=== PATIENT | female | born 1945 | race Caucasian/White ===

== ENCOUNTER 2017-03-08 07:12 | Emergency (ER) | payer MEDICARE, OTHER ==
--- NOTE | 2017-03-08 07:37 | ERPHSYRPT ---
- History of Present Illness Time Seen by Provider: 03/08/17 07:29 Source: patient Exam Limitations: no limitations Patient Subjective Stated Complaint: pt tripped and fell yesterday, pt co pain to left elbow Triage Nursing Assessment: pt co pain to upper arm that radiates to forearm, states that elbow area hurts the worst, has swelling at eblow. moves fingers well,strong radial pulse Physician History: The patient is a right-handed 71-year-old female with her complaining of tripping, falling on the carpeted floor, and hurting her left elbow yesterday afternoon. Today the left elbow is swollen and tender. It hurts to move it. the pain radiates from the elbow up into the forearm. She has no numbness or tingling. She is able to move her wrist and fingers without difficulty. She has a past medical history of hypertension, high cholesterol, GERD, restless legs, and arthritis. Occurred: yesterday Method of Injury: fell Quality: throbbing Severity of Pain-Max: moderate Severity of Pain-Current: moderate Extremities Pain Location: elbow: left Modifying Factors: Improves With: nothing Associated Symptoms: none Allergies/Adverse Reactions: amitriptyline HCl [From Elavil] Allergy (Mild, Verified 03/08/17 07:23) tramadol Allergy (Mild, Verified 03/08/17 07:23) quinine Adverse Reaction (Verified 03/08/17 07:23) Home Medications: Aspirin EC 81 mg [Ecotrin 81 mg] 1 tab PO DAILY 07/10/12 [History] Celecoxib [Celebrex] 1 cap PO BID 07/10/12 [History] Famotidine 2 tab PO HS 07/10/12 [History] Metoclopramide HCl [Reglan] 2 tab PO BID 07/10/12 [History] Rabeprazole Sodium [Aciphex] 2 tab PO BID 07/10/12 [History] Telmisartan [Micardis] 1 tab PO DAILY 07/10/12 [History] Tolterodine Tartrate [Detrol LA] 1 cap PO DAILY 07/10/12 [History] Clonazepam [Klonopin] 1 mg PO HS 11/11/15 [History] Diphenoxylate HCl/Atropine [Lomotil] 1 tab PO TID PRN 11/11/15 [History] Ergocalciferol (Vitamin D2) [Vitamin D2] 50,000 unit PO Q7D 11/11/15 [History] Multivitamin W-Minerals/Lutein [Centrum Silver Tablet] 1 each PO DAILY 11/11/15 [History] Simvastatin [Zocor] 20 mg PO HS 11/11/15 [History] Hx Tetanus, Diphtheria Vaccination/Date Given: Yes Hx Influenza Vaccination/Date Given: Yes Hx Pneumococcal Vaccination/Date Given: No Immunizations Up to Date: Yes - Review of Systems Constitutional: No Fever, No Chills Eyes: No Symptoms Ears, Nose, & Throat: No Symptoms Respiratory: No Cough, No Dyspnea Cardiac: No Chest Pain, No Edema, No Syncope Abdominal/Gastrointestinal: No Abdominal Pain, No Nausea, No Vomiting, No Diarrhea Genitourinary Symptoms: No Dysuria Musculoskeletal: Fall, Injury, Joint Pain Skin: No Rash Neurological: No Dizziness, No Focal Weakness, No Sensory Changes Psychological: No Symptoms Endocrine: No Symptoms Hematologic/Lymphatic: No Symptoms Immunological/Allergic: No Symptoms All Other Systems: Reviewed and Negative - Past Medical History Pertinent Past Medical History: Yes Neurological History: Other ENT History: No Pertinent History Cardiac History: Hypertension Respiratory History: No Pertinent History Endocrine Medical History: No Pertinent History Musculoskeletal History: Arthritis GI Medical History: No Pertinent History, GERD History: No Pertinent History Psycho-Social History: No Pertinent History Female Reproductive Disorders: No Pertinent History Other Medical History: Post polio syndrome with R LE affect, Pt wears B ankle braces with built up R shoe for leg length difference. - Past Surgical History Past Surgical History: Yes Neuro Surgical History: No Pertinent History Cardiac: No Pertinent History Respiratory: No Pertinent History Gastrointestinal: Cholecystectomy Genitourinary: No Pertinent History Musculoskeletal: Orthopedic Surgery Female Surgical History: Hysterectomy Other Surgical History: rt [id number] - Social History Smoking Status: Never smoker Exposure to second hand smoke: No Drug Use: none Patient Lives Alone: No Significant Family History: heart disease, hypertension - Female History Hx Last Menstrual Period: poat - Nursing Vital Signs Nursing Vital Signs: Initial Vital Signs Temperature 97.5 F Temperature Source Oral Pulse Rate 69 Respiratory Rate 16 Blood Pressure [Right Arm] 147/69 Pain Intensity 7 - Physical Exam General Appearance: alert Eyes, Ears, Nose, Throat Exam: moist mucous membranes Neck Exam: non-tender, supple Cardiovascular/Respiratory Exam: chest non-tender, normal breath sounds, regular rate/rhythm, no respiratory distress Abdominal Exam: non-tender, No guarding Back Exam: normal inspection, No vertebral tenderness Shoulder Exam: normal inspection Elbow/Forearm Exam: ecchymosis, limited ROM, pain, soft tissue tenderness (left elbow) Wrist Exam: normal inspection Hand Exam: normal inspection Neuro/Tendon Exam: normal sensation, normal motor functions Mental Status Exam: alert, oriented x 3, cooperative Skin Exam: normal color, warm, dry SpO2 Interpretation: normal SpO2: 99 Oxygen Delivery: Room Air - Radiology Exams Left Elbow X-ray Interpretation: Interpreted by me, Non-displaced Fracture (intra- articular fracture of proximal radius) Ordered Tests: Active Orders 24 hr Category Date Time Status ELBOW (MINIMUM 3 VIEWS) Stat Exams 03/08/17 07:41 Taken Medication Summary Discontinued Medications Generic Name Dose Route Start Last Admin Trade Name Freq PRN Reason Stop Dose Admin Acetaminophen/Codeine Phosphate 1 tab 03/08/17 07:41 03/08/17 07:46 Tylenol #3 Tablet PO 03/08/17 07:42 1 tab STAT ONE Administration Acetaminophen/Codeine Phosphate Confirm 03/08/17 07:46 Tylenol #3 Tablet Administered 03/08/17 07:47 Dose 1 tab .ROUTE .STK-MED ONE - Progress Progress: unchanged Counseled pt/family regarding: rad results - Departure Time of Disposition: 08:02 Departure Disposition: Home Clinical Impression: Radial head fracture, closed Condition: Stable Critical Care Time: No Additional Instructions: You have a fracture of the proximal left radius that extends into the joint space of the elbow. You were given a Tylenol 3 in the ER. Take 1-2 tablets of Tylenol No. 3 every 4-6 hours as needed for pain. Continue using your regular medicines as directed. Apply ice to the elbow 3-4 times a day for 10-15 minutes at a time. use the sling as needed. Follow-up with an orthopedic surgeon within the next 1-2 days for further evaluation. Prescriptions: Codeine Phosphate/APAP #3 [Tylenol #3 Tablet] 1 tab PO Q4-6HPRN PRN #20 tablet PRN Reason: Pain
[2017-03-08] MEDS ORDERED: Tylenol #3 Tablet PO ONE (07:41)
[2017-03-08] MEDS ORDERED: Tylenol #3 Tablet ONE (07:46)
[2017-03-08 08:24] VITALS: BP 121/64; PULSE 70; O2SAT 97
--- NOTE | 2017-03-08 10:23 | XRAY ---
Indication: Pain following fall. Comparison: None 3 views of the left elbow demonstrates minimally depressed vertical fracture through the radial head with intra-articular extension and effusion. No other bony, articular, or soft tissue abnormalities.
== END 2017-03-08 08:28 | disposition home or self-care (01) ==
LOC: ED 07:12
DX: S52.122A Displaced fracture of head of left radius, initial encounter for closed fracture (principal); W01.0XXA Fall on same level from slipping, tripping and stumbling without subsequent striking against object, initial encounter; Z79.899 Other long term (current) drug therapy
CPT/HCPCS: 73080; 99284; A9270-GY

== ENCOUNTER 2022-12-24 16:56 | Emergency (ER) | payer MEDICARE, OTHER ==
[2022-12-24] MEDS ORDERED: BABY ASPIRIN 81 MG CHEW PO ONE (17:08)
[2022-12-24] MEDS ORDERED: BABY ASPIRIN 81 MG CHEW ONE (17:11)
[2022-12-24 17:21] VITALS: O2SAT 98
[2022-12-24 17:29] LABS: BASOPHIL % 1.1 % (0.0-0.4); Basophil (Absolute #) 0.15 x10^3/uL (0-0.4); Eosinophil % 2.8 % (0.00-5.0); Eosinophil (Absolute #) 0.38 x10^3/uL (0-0.5); Hematocrit 42.1 % (35-47); Hemoglobin 13.1 g/dL (12.0-16.0); IMMATURE GRAN # 0.04 x10^3u/L (0.00-0.03); IMMATURE GRAN % 0.3 % (0.00-0.4); Lymphocyte (Absolute #) 3.41 x10^3/uL (1.0-4.6); Mean Cell Volume 76.4 fL (78-100); Mean Corpuscular Hemoglobin 23.8 pg (26-32); Mean Corpuscular Hgb Concent. 31.1 g/dL (32-36); Mean Platelet Volume 9.7 fL (7.5-11.0); Monocyte (Absolute #) 1.26 x10^3/uL (0.0-1.3); Monocytes % 9.2 % (0.0-12.0); Neutrophil % 61.6 % (36.0-66.0); Platelet Count 403 x10^3/uL (150-450); Red Blood Count 5.51 x10^6/uL (4.1-5.4); Red Cell Distribution Width 17.3 % (11.5-14.0); White Blood Count 13.6 x10^3/uL (4.0-10.5)
[2022-12-24 17:38] LABS: Appearance Clear (Clear); Bacteria None Seen /HPF (None Seen); Bilirubin Negative (Negative); Blood Negative (Negative); Epithelial Cells None Seen /HPF (None Seen); Glucose, Urine Negative (Negative); Hyaline Casts NONE SEEN /LPF (0-2); Ketones Negative (Negative); Leukocyte Esterase Small (Negative); Nitrite Negative (Negative); Protein,Urine Dip Negative (Negative); RBC 0-2 /HPF (0-5); Specific Gravity 1.015 (1.005-1.030); Urobilinogen 0.2 mg/dL (0.2)
[2022-12-24 17:43] LABS: ALBUMIN 4.2 g/dL (3.5-5.0); ALKALINE PHOSPHATASE 121 U/L (38-126); ANION GAP 14.8 MEQ/L (5-15); BLOOD UREA NITROGEN 14 mg/dL (7-17); CHLORIDE 105 mmol/L (98-107); Calcium 10.6 mg/dL (8.4-10.2); Carbon Dioxide 24 mmol/L (22-30); Creatinine 1 0.51 mg/dL (0.52-1.04); EST GLOMERULAR FILTRATION RATE > 60.0 ML/MIN; Glucose 118 mg/dL (74-106); Potassium 4.3 mmol/L (3.5-5.1); SGOT/AST 27 U/L (14-36); SGPT/ALT 28 U/L (0-35); SODIUM 139 mmol/L (137-145); Total Protein 7.4 g/dL (6.3-8.2)
[2022-12-24 17:46] LABS: ADD URINE CULTURE? NO (NO)
--- NOTE | 2022-12-24 18:18 | ERPHSYRPT ---
- History of Present Illness Time Seen by Provider: 12/24/22 18:12 Exam Limitations: no limitations Patient Subjective Stated Complaint: C/O chest pain that started less than one hour ago. Patient states she was at rest turning off her computer at home when it started. Pain is intermittent though, states she had a bout of the same pain on Wednesday and Wednesday this past week that subsided on it's own. Today is her third episode of chest pain this week. Triage Nursing Assessment: Patient brought back to ER by W/C. She is alert and oriented; anxious. No SOB. Special shoes noted to feet; patient indicates polio as a child. Skin tone normal. Some edema noted to LLE; patient indicates this is not new. Physician History: Patient is a 77-year-old female presents to the emergency department for evaluation of chest pain. Patient has been experiencing intermittent chest pain for the past 4 days. Pain tends to radiate into her neck into her left arm. Patient has a history of GERD. Patient initially thought it was GERD however symptoms continue to recur patient became concerned and came to our ED for evaluation. Patient has a history of a heart murmur. She sees Dr. Atul Fountain. Patient states if she requires admission she prefers to be transferred to [facility] to see her education managers. Symptoms are moderate in intensity. No specific worsening improving factors. Patient voices no other complaints concerns at this time Portions of this note were created with voice recognition technology. There may be grammatical, spelling, punctuation or sound alike errors Timing/Duration: today Severity: moderate Modifying Factors: Improves With: nothing Associated Symptoms: denies symptoms Allergies/Adverse Reactions: amitriptyline HCl [From Elavil] Allergy (Mild, Verified 12/24/22 17:21) tramadol Allergy (Mild, Verified 12/24/22 17:21) latex Allergy (Verified 12/24/22 17:21) quinine Adverse Reaction (Verified 12/24/22 17:21) Home Medications: Aspirin EC 81 mg [Ecotrin 81 mg] 1 tab PO QPM 07/10/12 [History] Rabeprazole Sodium [Aciphex] 1 tab PO BID 07/10/12 [History] Telmisartan [Micardis] 1 tab PO HS 09/30/12 [History] Simvastatin [Zocor] 20 mg PO HS 11/11/15 [History] Amlodipine Besylate 5 mg [Norvasc 5 mg] 5 mg PO DAILY 10/23/22 [History] Escitalopram Oxalate [Lexapro] 20 mg PO HS 10/23/22 [History] Lutein 20 mg PO DAILY 10/23/22 [History] Mirabegron [Myrbetriq] 50 mg PO HS 10/23/22 [History] Naproxen 500 mg [Naprosyn 500 MG] 500 mg PO BID 10/23/22 [History] Cholecalciferol (Vitamin D3) [Vitamin D3] 1 cap PO DAILY 12/24/22 [History] Folic Acid/Vit B Complex and C [Super B Complex Tablet] 1 tab PO DAILY 12/24/22 [History] Hx Tetanus, Diphtheria Vaccination/Date Given: Yes Hx Influenza Vaccination/Date Given: Yes Hx Pneumococcal Vaccination/Date Given: Yes Immunizations Up to Date: Yes Travel Risk - International Travel Have you traveled outside of the country in past 3 weeks: No - Coronavirus Screening Are you exhibiting any of the following symptoms?: No Close contact with a COVID-19 positive Pt in past 14-21 Days: No - Vaccine Status Have you recieved a Covid-19 vaccination: Yes [place] [employer]: [employer] - Vaccination Dates Date of 2cond Vaccination (if applicable): ? - Review of Systems Constitutional: No Symptoms, No Fever, No Chills Eyes: No Symptoms Ears, Nose, & Throat: No Symptoms Respiratory: No Symptoms, No Cough, No Dyspnea Cardiac: No Symptoms, No Chest Pain, No Edema, No Syncope Abdominal/Gastrointestinal: No Symptoms, No Abdominal Pain, No Nausea, No Vomiting, No Diarrhea Genitourinary Symptoms: No Symptoms, No Dysuria Musculoskeletal: No Symptoms, No Back Pain, No Neck Pain Skin: No Symptoms, No Rash Neurological: No Symptoms, No Dizziness, No Focal Weakness, No Sensory Changes Psychological: No Symptoms Endocrine: No Symptoms Hematologic/Lymphatic: No Symptoms Immunological/Allergic: No Symptoms All Other Systems: Reviewed and Negative - Past Medical History Pertinent Past Medical History: Yes Neurological History: Other ENT History: No Pertinent History Cardiac History: High Cholesterol, Hypertension, Other Respiratory History: No Pertinent History Endocrine Medical History: No Pertinent History Musculoskeletal History: Osteoarthritis, Osteoporosis GI Medical History: GERD History: No Pertinent History Psycho-Social History: Depression Female Reproductive Disorders: No Pertinent History Other Medical History: OVERACTIVE KIDNEYS, HEART MUMUR, hx polio as a child and post polio syndrome, right leg atrophy. Patient's Champagne Maker: Dr. Atul Fountain - Past Surgical History Past Surgical History: Yes Neuro Surgical History: No Pertinent History Cardiac: No Pertinent History Respiratory: No Pertinent History Gastrointestinal: Cholecystectomy Genitourinary: No Pertinent History Musculoskeletal: Orthopedic Surgery Female Surgical History: Hysterectomy Other Surgical History: rt foot - Social History Smoking Status: Never smoker Exposure to second hand smoke: No Drug Use: none Patient Lives Alone: No Significant Family History: heart disease, hypertension - Nursing Vital Signs Nursing Vital Signs: Initial Vital Signs Temperature 98 F 12/24/22 16:57 Pulse Rate 72 12/24/22 16:57 Respiratory Rate 16 12/24/22 16:57 Blood Pressure 180/87 12/24/22 16:57 O2 Sat by Pulse Oximetry 98 12/24/22 16:57 Pain Scale Pain Intensity 2 - Physical Exam General Appearance: no apparent distress, alert Eye Exam: PERRL/EOMI, eyes nml inspection Ears, Nose, Throat Exam: normal ENT inspection, TMs normal, pharynx normal, moist mucous membranes Neck Exam: normal inspection, non-tender, supple, full range of motion Respiratory Exam: normal breath sounds, lungs clear, airway intact, No respiratory distress Cardiovascular Exam: regular rate/rhythm, normal heart sounds, normal peripheral pulses Gastrointestinal/Abdomen Exam: soft, normal bowel sounds, No tenderness, No mass Back Exam: normal inspection, normal range of motion, No CVA tenderness, No vertebral tenderness Extremity Exam: normal inspection, normal range of motion, pelvis stable, other (Bilateral lower extremities AFO due to history of polio) Neurologic Exam: alert, oriented x 3, cooperative, normal mood/affect, nml cerebellar function, nml station & gait, sensation nml, No motor deficits Skin Exam: normal color, warm, dry, No rash Lymphatic Exam: No adenopathy SpO2 Interpretation: normal SpO2: 98 O2 Delivery: Room Air - Course Nursing assessment & vital signs reviewed: Yes EKG Interpreted by Me: RATE (69), Sinus Rhythm, NORMAL AXIS, NORMAL INTERVALS - Radiology Exams Chest X-ray Interpretation: Interpreted by me (Lung granulomas, hiatal hernia, osteop enia, degenerative changes, no acute findings) Ordered Tests: Active Orders 24 hr Category Date Time Status Career Consultant STAT Care 12/24/22 17:09 Active EKG-ER Only STAT Care 12/24/22 17:08 Active IV Insertion STAT Care 12/24/22 17:08 Active CHEST 1 VIEW (PORTABLE) Stat Exams 12/24/22 17:08 Taken CBC W DIFF Stat Lab 12/24/22 17:20 Completed CMP Stat Lab 12/24/22 17:20 Completed D-DIMER QUANTITATIVE Stat Lab 12/24/22 17:20 Completed NT PRO BNPII Stat Lab 12/24/22 17:20 Completed TROPONIN Q4H Lab 12/24/22 17:20 Completed TROPONIN Q4H Lab 12/24/22 21:15 Ordered TROPONIN Q4H Lab 12/25/22 01:15 Ordered UA W/RFX UR CULTURE Stat Lab 12/24/22 17:21 Completed Medication Summary Discontinued Medications Generic Name Dose Route Start Last Admin Trade Name Freq PRN Reason Stop Dose Admin Aspirin 324 mg 12/24/22 17:08 12/24/22 17:12 Aspirin 81 Mg Tab.Chew PO 12/24/22 17:09 324 mg STAT ONE Administration Aspirin Confirm 12/24/22 17:11 Aspirin 81 Mg Tab.Chew Administered 12/24/22 17:12 Dose 324 mg .ROUTE .STK-MED ONE Nitroglycerin 1 gm 12/24/22 18:47 12/24/22 18:49 Nitroglycerin 1 Gm Packet TOP 12/24/22 18:48 1 gm STAT ONE Administration Nitroglycerin Confirm 12/24/22 18:48 Nitroglycerin 1 Gm Packet Administered 12/24/22 18:49 Dose 1 gm .ROUTE .STK-MED ONE Lab/Rad Data: Laboratory Result Diagrams 12/24/22 17:20 12/24/22 17:20 Laboratory Results 12/24/22 12/24/22 12/24/22 Range/Units 18:10 17:21 17:20 WBC (4.0-10.5) x10^3/uL RBC (4.1-5.4) x10^6/uL Hgb (12.0-16.0) g/dL Hct (35-47) % MCV (78-100) fL MCH (26-32) pg MCHC (32-36) g/dL RDW (11.5-14.0) % Plt Count (150-450) x10^3/uL MPV (7.5-11.0) fL Gran % (36.0-66.0) % Immature Gran % (Auto) (0.00-0.4) % Nucleat RBC Rel Count (0.00-0.1) % Eos # (Auto) (0-0.5) x10^3/uL Immature Gran # (Auto) (0.00-0.03) x10^3u/L Absolute Lymphs (auto) (1.0-4.6) x10^3/uL Absolute Monos (auto) (0.0-1.3) x10^3/uL Absolute Nucleated RBC (0.00-0.01) x10^3u/L Lymphocytes % (24.0-44.0) % Monocytes % (0.0-12.0) % Eosinophils % (0.00-5.0) % Basophils % (0.0-0.4) % Absolute Granulocytes (1.4-6.9) x10^3/uL Basophils # (0-0.4) x10^3/uL D-Dimer (0.0-0.50) mg/L Sodium (137-145) mmol/L Potassium (3.5-5.1) mmol/L Chloride (98-107) mmol/L Carbon Dioxide (22-30) mmol/L Anion Gap (5-15) MEQ/L BUN (7-17) mg/dL Creatinine (0.52-1.04) mg/dL Estimated GFR ML/MIN Glucose (74-106) mg/dL Calcium (8.4-10.2) mg/dL Total Bilirubin (0.2-1.3) mg/dL AST (14-36) U/L ALT (0-35) U/L Alkaline Phosphatase (38-126) U/L Troponin I (0.000-0.034) ng/mL NT-Pro-B Natriuret Pep 94.3 (<300) pg/mL Serum Total Protein (6.3-8.2) g/dL Albumin (3.5-5.0) g/dL Urine Color Yellow (Yellow) Urine Appearance Clear (Clear) Urine pH 7.0 (4.6-8.0) Ur Specific [place] 1.015 (1.005-1.030) Urine Protein Negative (Negative) Urine Glucose (UA) Negative (Negative) mg/dL Urine Ketones Negative (Negative) Urine Blood Negative (Negative) Urine Nitrite Negative (Negative) Urine Bilirubin Negative (Negative) Urine Urobilinogen 0.2 (0.2) mg/dL Ur Leukocyte Esterase Small A (Negative) U Hyaline Cast (Auto) NONE SEEN (0-2) /LPF Urine Microscopic RBC 0-2 (0-5) /HPF Urine Microscopic WBC 6-10 A (0-5) /HPF Ur Epithelial Cells None Seen (None Seen) /HPF Urine Bacteria None Seen (None Seen) /HPF Urine Culture Reflexed NO (NO) Influenza Type A Ag NEGATIVE (NEGATIVE) Influenza Type B Ag NEGATIVE (NEGATIVE) RSV (PCR) NEGATIVE (NEGATIVE) SARS-CoV-2 (PCR) NEGATIVE (NEGATIVE) 12/24/22 12/24/22 12/24/22 Range/Units 17:20 17:20 17:20 WBC (4.0-10.5) x10^3/uL RBC (4.1-5.4) x10^6/uL Hgb (12.0-16.0) g/dL Hct (35-47) % MCV (78-100) fL MCH (26-32) pg MCHC (32-36) g/dL RDW (11.5-14.0) % Plt Count (150-450) x10^3/uL MPV (7.5-11.0) fL Gran % (36.0-66.0) % Immature Gran % (Auto) (0.00-0.4) % Nucleat RBC Rel Count (0.00-0.1) % Eos # (Auto) (0-0.5) x10^3/uL Immature Gran # (Auto) (0.00-0.03) x10^3u/L Absolute Lymphs (auto) (1.0-4.6) x10^3/uL Absolute Monos (auto) (0.0-1.3) x10^3/uL Absolute Nucleated RBC (0.00-0.01) x10^3u/L Lymphocytes % (24.0-44.0) % Monocytes % (0.0-12.0) % Eosinophils % (0.00-5.0) % Basophils % (0.0-0.4) % Absolute Granulocytes (1.4-6.9) x10^3/uL Basophils # (0-0.4) x10^3/uL D-Dimer 0.26 (0.0-0.50) mg/L Sodium 139 (137-145) mmol/L Potassium 4.3 (3.5-5.1) mmol/L Chloride 105 (98-107) mmol/L Carbon Dioxide 24 (22-30) mmol/L Anion Gap 14.8 (5-15) MEQ/L BUN 14 (7-17) mg/dL Creatinine 0.51 L (0.52-1.04) mg/dL Estimated GFR > 60.0 ML/MIN Glucose 118 H (74-106) mg/dL Calcium 10.6 H (8.4-10.2) mg/dL Total Bilirubin 0.30 (0.2-1.3) mg/dL AST 27 (14-36) U/L ALT 28 (0-35) U/L Alkaline Phosphatase 121 (38-126) U/L Troponin I < 0.012 (0.000-0.034) ng/mL NT-Pro-B Natriuret Pep (<300) pg/mL Serum Total Protein 7.4 (6.3-8.2) g/dL Albumin 4.2 (3.5-5.0) g/dL Urine Color (Yellow) Urine Appearance (Clear) Urine pH (4.6-8.0) Ur Specific [place] (1.005-1.030) Urine Protein (Negative) Urine Glucose (UA) (Negative) mg/dL Urine Ketones (Negative) Urine Blood (Negative) Urine Nitrite (Negative) Urine Bilirubin (Negative) Urine Urobilinogen (0.2) mg/dL Ur Leukocyte Esterase (Negative) U Hyaline Cast (Auto) (0-2) /LPF Urine Microscopic RBC (0-5) /HPF Urine Microscopic WBC (0-5) /HPF Ur Epithelial Cells (None Seen) /HPF Urine Bacteria (None Seen) /HPF Urine Culture Reflexed (NO) Influenza Type A Ag (NEGATIVE) Influenza Type B Ag (NEGATIVE) RSV (PCR) (NEGATIVE) SARS-CoV-2 (PCR) (NEGATIVE) 12/24/22 Range/Units 17:20 WBC 13.6 H (4.0-10.5) x10^3/uL RBC 5.51 H (4.1-5.4) x10^6/uL Hgb 13.1 (12.0-16.0) g/dL Hct 42.1 (35-47) % MCV 76.4 L (78-100) fL MCH 23.8 L (26-32) pg MCHC 31.1 L (32-36) g/dL RDW 17.3 H (11.5-14.0) % Plt Count 403 (150-450) x10^3/uL MPV 9.7 (7.5-11.0) fL Gran % 61.6 (36.0-66.0) % Immature Gran % (Auto) 0.3 (0.00-0.4) % Nucleat RBC Rel Count 0.0 (0.00-0.1) % Eos # (Auto) 0.38 (0-0.5) x10^3/uL Immature Gran # (Auto) 0.04 H (0.00-0.03) x10^3u/L Absolute Lymphs (auto) 3.41 (1.0-4.6) x10^3/uL Absolute Monos (auto) 1.26 (0.0-1.3) x10^3/uL Absolute Nucleated RBC 0.00 (0.00-0.01) x10^3u/L Lymphocytes % 25.0 (24.0-44.0) % Monocytes % 9.2 (0.0-12.0) % Eosinophils % 2.8 (0.00-5.0) % Basophils % 1.1 (0.0-0.4) % Absolute Granulocytes 8.40 H (1.4-6.9) x10^3/uL Basophils # 0.15 (0-0.4) x10^3/uL D-Dimer (0.0-0.50) mg/L Sodium (137-145) mmol/L Potassium (3.5-5.1) mmol/L Chloride (98-107) mmol/L Carbon Dioxide (22-30) mmol/L Anion Gap (5-15) MEQ/L BUN (7-17) mg/dL Creatinine (0.52-1.04) mg/dL Estimated GFR ML/MIN Glucose (74-106) mg/dL Calcium (8.4-10.2) mg/dL Total Bilirubin (0.2-1.3) mg/dL AST (14-36) U/L ALT (0-35) U/L Alkaline Phosphatase (38-126) U/L Troponin I (0.000-0.034) ng/mL NT-Pro-B Natriuret Pep (<300) pg/mL Serum Total Protein (6.3-8.2) g/dL Albumin (3.5-5.0) g/dL Urine Color (Yellow) Urine Appearance (Clear) Urine pH (4.6-8.0) Ur Specific [place] (1.005-1.030) Urine Protein (Negative) Urine Glucose (UA) (Negative) mg/dL Urine Ketones (Negative) Urine Blood (Negative) Urine Nitrite (Negative) Urine Bilirubin (Negative) Urine Urobilinogen (0.2) mg/dL Ur Leukocyte Esterase (Negative) U Hyaline Cast (Auto) (0-2) /LPF Urine Microscopic RBC (0-5) /HPF Urine Microscopic WBC (0-5) /HPF Ur Epithelial Cells (None Seen) /HPF Urine Bacteria (None Seen) /HPF Urine Culture Reflexed (NO) Influenza Type A Ag (NEGATIVE) Influenza Type B Ag (NEGATIVE) RSV (PCR) (NEGATIVE) SARS-CoV-2 (PCR) (NEGATIVE) - Progress Progress: improved Progress Note: 12/24/22 18:[address] ZARAGOZA who accepts transfer to [facility]. Patient is a 77-year-old female presents to our ED with intermittent chest pain radiating to her neck and left arm. Patient has a significant past medical his tory of hypertension and hypercholesterolemia. Heart score 4. Patient will require admission for cardiac rule out. Patient requested transfer to a facility with a education managers. We contacted [facility]. Patient accepted. Complexity of problems addressed is moderate. Diagnosis is new with uncertain prognosis. No critical care time. Complexity of data reviewed and analyzed is moderate. Test ordered. Test reviewed. Patient served as independent historian. However patient has been provided significant information to [facility]. Case discussed with Dr. Zaragoza who accepts transfer to [facility]. Case also discussed with Dr. Summers ER physician at [facility] who accepts transfer. Patient agrees to transfer to [facility] for further evaluation and treatment. Risk of complication and or risk morbidity/mortality patient management is moderate. Patient received nitroglycerin and aspirin. Patient transferred in stable condition. Portions of this note were created with voice recognition technology. There may be grammatical, spelling, punctuation or sound alike errors 12/24/22 19:01 Counseled pt/family regarding: lab results, diagnosis, rad results - Departure Departure Disposition: Transfer Clinical Impression: ACS (acute coronary syndrome), Chest pain Condition: Stable Critical Care Time: No Referrals: VANESSA JORDAN DO [Primary Care Provider] - Follow up/PCP as directed
[2022-12-24 18:27] VITALS: BP 175/64; PULSE 80
[2022-12-24] MEDS ORDERED: NITRO-BID 2% UD PACKETS TOP ONE (18:47)
[2022-12-24] MEDS ORDERED: NITRO-BID 2% UD PACKETS ONE (18:48)
[2022-12-24 18:51] LABS: INFLUENZA A NEGATIVE (NEGATIVE); INFLUENZA B NEGATIVE (NEGATIVE); RESPIRATORY SYNCTIAL VIRUS NEGATIVE (NEGATIVE); SARS-CoV-2 Xpert Express NEGATIVE (NEGATIVE)
--- NOTE | 2022-12-25 08:43 | XRAY ---
Indication: Chest pain. Comparison: August 29, 2022 Portable chest again demonstrates COPD and bilateral calcified granulomas. Heart not enlarged. Enlarging large fluid-filled hiatal hernia with intrathoracic stomach. Bony thorax intact again with osteopenia and degenerative changes. Impression: Continued nonacute chest with chronic features.
== END 2022-12-24 19:11 | disposition short-term general hospital (02) ==
LOC: ED 16:56
DX: I24.9 Acute ischemic heart disease, unspecified (principal); I10 Essential (primary) hypertension; R07.9 Chest pain, unspecified; E78.5 Hyperlipidemia, unspecified; Z79.899 Other long term (current) drug therapy; Z20.828 Contact with and (suspected) exposure to other viral communicable diseases
CPT/HCPCS: 0241U; 36000; 36415; 71045; 80053; 81001; 83880; 84484; 85025; 85379; 93005; 93041; 99284; A9270-GY

== ENCOUNTER 2023-08-25 06:02 | Day surgery (SDC) | payer MEDICARE, OTHER ==
[2023-08-25] MEDS ORDERED: Lactated Ringers 1,000 ML IV SCH (06:30)
[2023-08-25 06:57] VITALS: RESP 16; O2SAT 98
[2023-08-25] MEDS ORDERED: Xylocaine-Mpf 2% 5 Ml Vial ONE (08:22)
[2023-08-25] MEDS ORDERED: DIPRIVAN 200 MG/20 ML IV ONE ×2 (08:22→08:39)
[2023-08-25 09:32] VITALS: BP 151/76; PULSE 65; TEMP 97.7
--- NOTE | 2023-08-25 11:02 | OP ---
SURGERY DATE/TIME: 08/25/2023 0833 PREOPERATIVE DIAGNOSIS: Chronic diarrhea. POSTOPERATIVE DIAGNOSIS: Normal colon. PROCEDURE: Colonoscopy. SURGEON: Chandler Skelton M.D. ANESTHESIA: MAC by Bertrand Maria CRNA. ESTIMATED BLOOD LOSS: Minimal. SPECIMENS: 1) Stool was collected for clostridium difficile, ova and parasites and stool culture. 2) Three random mucosal biopsies were taken from the sigmoid colon. DESCRIPTION OF PROCEDURE: After informed written consent was obtained, the patient was taken to the endoscopy suite. She was placed in left lateral decubitus position and anesthesia was titrated to desired level of consciousness. Digital rectal exam showed normal sphincter tone and no internal lesions. The scope was inserted into the rectum and sequentially the entire colonic mucosa was traversed. The level of cecum was reached and verified with direct visualization of the ileocecal valve. There was a fair amount of liquid/semisolid stool on the right side of the colon therefore trap was used and sample was taken and sent for culture and clostridium difficile as well as ova and parasites to rule out any infectious etiology of the patient's symptoms. Upon withdrawal careful mucosal inspection revealed no gross mucosal abnormalities. There were no masses, no polyps or other lesions encountered. Three random biopsies were taken from the sigmoid colon to evaluate for microscopic colitis or collagenous colitis. Prior to withdrawal retroflexion showed no internal lesions. The scope was removed. The patient was transferred to the recovery room in good condition. She had been advised to follow up in a week for pathology results.
[2023-08-25 15:13] LABS: 027 TOX PROD PRESUMPTIVE NEGATIVE (NEGATIVE); TOXIGENIC C. DIFF ORG NEGATIVE (NEGATIVE)
== END 2023-08-25 09:49 | disposition home or self-care (01) ==
LOC: SDC 06:02
PROVIDERS: ATTEND Family Medicine
DX: K52.9 Noninfective gastroenteritis and colitis, unspecified (principal)
CPT/HCPCS: 87045; 87046; 87177; 87209; 87328; 87329; 87427; 87493; 93005; 99100; J2704

== ENCOUNTER 2024-02-21 09:03 | Emergency (ER) | payer MEDICARE, OTHER ==
[2024-02-21 09:24] VITALS: TEMP 98.2
--- NOTE | 2024-02-21 09:37 | ERPHSYRPT ---
- History of Present Illness Time Seen by Provider: 02/21/24 09:20 Historian: patient, family Exam Limitations: no limitations Patient Subjective Stated Complaint: Pt states "I had a colonoscopy about [address] de leon and I vomited this morning and it was black." Triage Nursing Assessment: pt presented alert and oriented X 3, skin pwd. Pt ambulates with an upright weak gait. pt able to speak in clear full sentences. Pt resting comfortably on the bed. Physician History: This is a 78-year-old white female patient of Dr. De Leon who presents to the emergency department with a history of diarrhea for the last 6 months following a colonoscopy. Patient presents with some mild central periumbilical abdominal achiness with palpation and pressure. She had an episode of vomiting and it was black and she became concerned. Patient was recently placed on Lomotil. She also has iron supplementations that she is taking. She has not had an upper endoscopy performed recently. Patient denies chest pain. Patient denies shortness of breath. Patient states that the color of the diarrhea has not changed. She has not noticed any bright red blood rectally or bright red blood with the episode of vomiting today. Patient has a history of anxiety, hypertension, diabetes, hyperlipidemia and gastroesophageal reflux disease. Timing/Duration: today Quality: aching, pressure Abdominal Pain Onset Location: periumbilical Pain Radiation: no radiation Severity of Pain-Max: mild Severity of Pain-Current: mild Modifying Factors: Improves With: vomiting Associated Symptoms: vomiting Previous symptoms: no prior history, no recent treatment (Once) Allergies/Adverse Reactions: amitriptyline HCl [From Elavil] Allergy (Mild, Verified 11/05/23 10:15) tramadol Allergy (Mild, Verified 11/05/23 10:15) latex Allergy (Verified 11/05/23 10:15) amoxicillin [From Augmentin] Adverse Reaction (Verified 11/05/23 10:15) Diarrhea clavulanic acid [From Augmentin] Adverse Reaction (Verified 11/05/23 10:15) Diarrhea quinine Adverse Reaction (Verified 11/05/23 10:15) Home Medications: Rabeprazole Sodium [Aciphex] 1 tab PO BID 07/10/12 [History] Amlodipine Besylate 5 mg [Norvasc 5 mg] 5 mg PO DAILY 10/23/22 [History] Escitalopram Oxalate [Lexapro] 20 mg PO HS 10/23/22 [History] Lutein 20 mg PO DAILY 10/23/22 [History] Mirabegron [Myrbetriq] 50 mg PO HS 10/23/22 [History] Cholecalciferol (Vitamin D3) [Vitamin D3] 1 cap PO DAILY 12/24/22 [History] Folic Acid/Vit B Complex and C [Super B Complex Tablet] 1 tab PO DAILY 12/24/22 [History] Albuterol 8 gm Mdi Hfa [Ventolin Hfa MDI] 2 puff IH TID 04/27/23 [History] Atorvastatin Calcium 20 mg PO DAILY 04/27/23 [History] Carvedilol 12.5 mg [Coreg 12.5 mg] 12.5 mg PO BID 04/27/23 [History] Losartan Potassium [Cozaar] 100 mg PO DAILY 04/27/23 [History] Acetaminophen [Tylenol Arthritis] 650 mg PO TID 08/16/23 [History] Multivit-Min/FA/Lycopen/Lutein [Centrum Silver Tablet] 1 tab PO DAILY 08/16/23 [History] hydrOXYzine pamoate [Vistaril] 10 mg PO DAILY PRN PRN 08/16/23 [History] Semaglutide [Wegovy] 0.5 mg SQ WEEKLY 08/25/23 [History] Hyoscyamine Sulfate 0.125 mg [Anaspaz 0.125 mg] 0.125 mg PO TID 11/05/23 [History] Diphenoxylate HCl/Atropine [Diphenoxylate-Atrop 2.5-0.025] 1 each PO QID 02/21/24 [History] Ferrous Sulfate [Iron] 325 mg PO DAILY 02/21/24 [History] Hx Tetanus, Diphtheria Vaccination/Date Given: Yes Hx Influenza Vaccination/Date Given: Yes Hx Pneumococcal Vaccination/Date Given: Yes Immunizations Up to Date: No Travel Risk - International Travel Have you traveled outside of the country in past 3 weeks: No - Emerging Infectious Disease Are you exhibiting symptoms associated with any current EIDs: Yes Symptoms: Abdominal Pain - Review of Systems Constitutional: No Symptoms Eyes: No Symptoms Ears, Nose, & Throat: No Symptoms Respiratory: No Symptoms Cardiac: No Symptoms Abdominal/Gastrointestinal: Abdominal Pain (Mild periumbilical pressure and ache), Vomiting (Vomited once today. The vomitus was black) Genitourinary Symptoms: No Symptoms Musculoskeletal: No Symptoms Skin: No Symptoms Neurological: No Symptoms Psychological: No Symptoms Endocrine: No Symptoms Hematologic/Lymphatic: No Symptoms Immunological/Allergic: No Symptoms All Other Systems: Reviewed and Negative - Past Medical History Pertinent Past Medical History: Yes Neurological History: Other ENT History: No Pertinent History Cardiac History: Angina, High Cholesterol, Hypertension Respiratory History: COPD, Other Endocrine Medical History: Other Musculoskeletal History: Osteoarthritis GI Medical History: GERD, Irritable Bowel History: No Pertinent History Psycho-Social History: Depression Female Reproductive Disorders: No Pertinent History Other Medical History: POST-POLIO SYNDROME, HAVING HER THYROID CHECKED. - Past Surgical History Past Surgical History: Yes Neuro Surgical History: No Pertinent History Cardiac: No Pertinent History Respiratory: No Pertinent History Gastrointestinal: Cholecystectomy Genitourinary: No Pertinent History Musculoskeletal: Orthopedic Surgery Female Surgical History: Hysterectomy Other Surgical History: rt foot. colonoscopy Significant Family History: heart disease, hypertension - Social History Smoking Status: Never smoker Exposure to second hand smoke: No Drug Use: none Patient Lives Alone: No - Nursing Vital Signs Nursing Vital Signs: Initial Vital Signs Temperature 98.2 F 02/21/24 09:19 Pulse Rate 100 H 02/21/24 09:19 Respiratory Rate 20 02/21/24 09:19 Blood Pressure 173/81 02/21/24 09:19 O2 Sat by Pulse Oximetry 100 02/21/24 09:19 Pain Scale Pain Intensity 0 - Physical Exam General Appearance: no apparent distress, alert, anxiety Eye Exam: PERRL/EOMI, eyes nml inspection Ears, Nose, Throat Exam: normal ENT inspection, moist mucous membranes Neck Exam: normal inspection, non-tender, supple, full range of motion Respiratory Exam: normal breath sounds, lungs clear, airway intact, No chest tenderness, No respiratory distress Cardiovascular Exam: regular rate/rhythm, normal heart sounds, normal peripheral pulses Gastrointestinal/Abdomen Exam: soft, normal bowel sounds, tenderness (Mild central, periumbilical tenderness to palpation), guarding (Mild tenderness to palpation), No rebound Pelvic Exam: not done Rectal Exam: not done Back Exam: normal inspection, normal range of motion, No CVA tenderness, No vertebral tenderness Extremity Exam: normal inspection, normal range of motion, pelvis stable Neurologic Exam: alert, oriented x 3, cooperative, industrial hygiene manager II-XII nml as tested, nml cerebellar function, nml station & gait, sensation nml Skin Exam: normal color, warm, dry Lymphatic Exam: No adenopathy SpO2 Interpretation: normal SpO2: 100 O2 Delivery: Room Air - Course Nursing assessment & vital signs reviewed: Yes Ordered Tests: Active Orders 24 hr Category Date Time Status IV Insertion STAT Care 02/21/24 09:40 Active Telemetry q4h Care 02/21/24 10:21 Active ABDOMEN AND PELVIS W/0 CONTRAS [CT] Stat Exams 02/21/24 09:41 Completed CHEST 1 VIEW (PORTABLE) Stat Exams 02/21/24 17:20 Taken AMYLASE Stat Lab 02/21/24 09:40 Completed BMP Stat Lab 02/21/24 14:25 Completed CBC W DIFF Stat Lab 02/21/24 09:40 Completed CBC W DIFF Stat Lab 02/21/24 14:25 Completed CBC W DIFF Stat Lab 02/21/24 16:54 Completed CMP Stat Lab 02/21/24 09:40 Completed LIPASE Stat Lab 02/21/24 09:40 Completed Lactic Acid Stat Lab 02/21/24 14:16 Completed MAG [MAGNESIUM] Stat Lab 02/21/24 09:40 Completed MONO SCREEN Stat Lab 02/21/24 09:40 Completed Manual Differential NC Stat Lab 02/21/24 16:54 Completed Occult Blood-Fecal Screen (Diagnostic) [OB-FECAL SCREEN Lab 02/21/24 09:40 Completed ] Stat UA W/RFX UR CULTURE Stat Lab 02/21/24 Completed Medication Summary Generic Name Dose Route Start Last Admin Trade Name Freq PRN Reason Stop Dose Admin Sodium Chloride 1,000 mls @ 100 mls/hr 02/21/24 09:45 02/21/24 10:42 Sodium Chloride 0.9% 1000 Ml IV 03/22/24 09:44 100 mls/hr .Q10H ANASTASIA Administration Sodium Chloride 500 mls @ 250 mls/hr 02/21/24 15:59 02/21/24 16:12 Sodium Chloride 0.9% 500 Ml IV 02/21/24 17:58 250 mls/hr .Q2H ONE Administration Discontinued Medications Generic Name Dose Route Start Last Admin Trade Name Freq PRN Reason Stop Dose Admin Potassium Chloride 20 meq in 100 mls @ 50 mls/hr 02/21/24 10:20 02/21/24 10:44 Potassium Chloride 20 Meq In Water 100ml IV 02/21/24 12:19 50 mls/hr STAT ONE Administration Potassium Chloride Confirm 02/21/24 10:38 Potassium Chloride 20 Meq In Water 100ml Administered 02/21/24 10:39 Dose 100 mls @ ud IV .STK-MED ONE Lactated Ringer's 1,000 mls @ 999 mls/hr 02/21/24 11:46 02/21/24 14:34 Lactated Ringers IV 02/21/24 12:46 Infused .Q1H1M ONE Infusion Lactated Ringer's Confirm 02/21/24 13:03 Lactated Ringers Administered 02/21/24 13:04 Dose 1,000 mls @ ud IV .STK-MED ONE Sodium Chloride Confirm 02/21/24 16:09 Sodium Chloride 0.9% 500 Ml Administered 02/21/24 16:10 Dose 500 mls @ ud IV .STK-MED ONE Levofloxacin 500 mg 02/21/24 14:13 02/21/24 14:29 Levofloxacin 500 Mg Tablet PO 02/21/24 14:14 500 mg STAT ONE Administration Levofloxacin Confirm 02/21/24 14:23 Levofloxacin 500 Mg Tablet Administered 02/21/24 14:24 Dose 500 mg .ROUTE .STK-MED ONE Magnesium Oxide 400 mg 02/21/24 11:46 02/21/24 12:03 Magnesium Oxide 400 Mg Tablet PO 02/21/24 11:47 400 mg STAT ONE Administration Magnesium Oxide Confirm 02/21/24 12:01 Magnesium Oxide 400 Mg Tablet Administered 02/21/24 12:02 Dose 400 mg .ROUTE .STK-MED ONE Metronidazole 500 mg 02/21/24 14:13 02/21/24 14:29 Metronidazole 500 Mg Tablet PO 02/21/24 14:14 500 mg STAT ONE Administration Metronidazole Confirm 02/21/24 14:23 Metronidazole 500 Mg Tablet Administered 02/21/24 14:24 Dose 500 mg .ROUTE .STK-MED ONE Potassium Chloride 20 meq 02/21/24 10:20 02/21/24 10:40 Potassium Chloride Tab 10 Meq Tab PO 02/21/24 10:21 20 meq STAT ONE Administration Potassium Chloride Confirm 02/21/24 10:38 Potassium Chloride Tab 10 Meq Tab Administered 02/21/24 10:39 Dose 20 meq .ROUTE .STK-MED ONE Lab/Rad Data: Laboratory Result Diagrams 02/21/24 16:54 02/21/24 14:25 Laboratory Results 02/21/24 02/21/24 02/21/24 Range/Units Unknown 16:54 15:41 WBC 25.4 H* (4.0-10.5) x10^3/uL RBC 4.43 (4.1-5.4) x10^6/uL Hgb 11.1 L (12.0-16.0) g/dL Hct 35.1 (35-47) % MCV 79.2 (78-100) fL MCH 25.1 L (26-32) pg MCHC 31.6 L (32-36) g/dL RDW 15.2 H (11.5-14.0) % Plt Count 374 (150-450) x10^3/uL MPV 9.8 (7.5-11.0) fL Gran % (36.0-66.0) % Immature Gran % (Auto) (0.00-0.4) % Nucleat RBC Rel Count (0.00-0.1) % Eos # (Auto) (0-0.5) x10^3/uL Immature Gran # (Auto) (0.00-0.03) x10^3u/L Absolute Lymphs (auto) (1.0-4.6) x10^3/uL Absolute Monos (auto) (0.0-1.3) x10^3/uL Absolute Nucleated RBC (0.00-0.01) x10^3u/L Lymphocytes % (24.0-44.0) % Monocytes % (0.0-12.0) % Eosinophils % (0.00-5.0) % Basophils % (0.0-0.4) % Absolute Granulocytes (1.4-6.9) x10^3/uL Basophils # (0-0.4) x10^3/uL Sodium (135-145) mmol/L Potassium (3.5-5.1) mmol/L Chloride (98-107) mmol/L Carbon Dioxide (22-30) mmol/L Anion Gap (5-15) MEQ/L BUN (7-17) mg/dL Creatinine (0.52-1.04) mg/dL Estimated GFR ML/MIN Glucose (74-106) mg/dL Lactic Acid (0.4-2.0) Calcium (8.4-10.2) mg/dL Magnesium (1.6-2.3) mg/dL Total Bilirubin (0.2-1.3) mg/dL AST (14-36) U/L ALT (0-35) U/L Alkaline Phosphatase (38-126) U/L Serum Total Protein (6.3-8.2) g/dL Albumin (3.5-5.0) g/dL Amylase (30-110) U/L Lipase (23-300) U/L Urine Color Yellow (Yellow) Urine Appearance Clear (Clear) Urine pH 5.5 (4.6-8.0) Ur Specific [place] 1.020 (1.005-1.030) Urine Protein Trace A (Negative) Urine Glucose (UA) Negative (Negative) mg/dL Urine Ketones 40 A (Negative) Urine Blood Negative (Negative) Urine Nitrite Negative (Negative) Urine Bilirubin Negative (Negative) Urine Urobilinogen 0.2 (0.2) mg/dL Ur Leukocyte Esterase Negative (Negative) U Hyaline Cast (Auto) NONE SEEN (0-2) /LPF Urine Microscopic RBC 0-2 (0-5) /HPF Urine Microscopic WBC 0-2 (0-5) /HPF Ur Epithelial Cells None Seen (None Seen) /HPF Urine Bacteria None Seen (None Seen) /HPF Urine Culture Reflexed NO (NO) Stl Occult Blood (IFOB) (NEGATIVE) C. difficile Screen NEGATIVE (NEGATIVE) C.difficile 027-NAP1-B1 PRESUMPTIVE NEGATIVE (NEGATIVE) Monoscreen (NEGATIVE) Influenza Type A Ag (NEGATIVE) Influenza Type B Ag (NEGATIVE) RSV (PCR) (NEGATIVE) SARS-CoV-2 (PCR) (NEGATIVE) Slides for Path Review 02/21/24 02/21/24 02/21/24 Range/Units 14:25 14:25 14:16 WBC 24.0 H (4.0-10.5) x10^3/uL RBC 4.58 (4.1-5.4) x10^6/uL Hgb 11.2 L (12.0-16.0) g/dL Hct 36.4 (35-47) % MCV 79.5 (78-100) fL MCH 24.5 L (26-32) pg MCHC 30.8 L (32-36) g/dL RDW 15.1 H (11.5-14.0) % Plt Count 364 (150-450) x10^3/uL MPV 9.5 (7.5-11.0) fL Gran % 89.0 H (36.0-66.0) % Immature Gran % (Auto) 0.7 H (0.00-0.4) % Nucleat RBC Rel Count 0.0 (0.00-0.1) % Eos # (Auto) 0.10 (0-0.5) x10^3/uL Immature Gran # (Auto) 0.17 H (0.00-0.03) x10^3u/L Absolute Lymphs (auto) 1.29 (1.0-4.6) x10^3/uL Absolute Monos (auto) 1.04 (0.0-1.3) x10^3/uL Absolute Nucleated RBC 0.00 (0.00-0.01) x10^3u/L Lymphocytes % 5.4 L (24.0-44.0) % Monocytes % 4.3 (0.0-12.0) % Eosinophils % 0.4 (0.00-5.0) % Basophils % 0.2 (0.0-0.4) % Absolute Granulocytes 21.38 H (1.4-6.9) x10^3/uL Basophils # 0.06 (0-0.4) x10^3/uL Sodium 142 (135-145) mmol/L Potassium 3.2 L (3.5-5.1) mmol/L Chloride 115 H (98-107) mmol/L Carbon Dioxide 19 L (22-30) mmol/L Anion Gap 10.5 (5-15) MEQ/L BUN 7 (7-17) mg/dL Creatinine 0.36 L (0.52-1.04) mg/dL Estimated GFR 104.5 ML/MIN Glucose 119 H (74-106) mg/dL Lactic Acid 1.0 (0.4-2.0) Calcium 9.2 (8.4-10.2) mg/dL Magnesium (1.6-2.3) mg/dL Total Bilirubin (0.2-1.3) mg/dL AST (14-36) U/L ALT (0-35) U/L Alkaline Phosphatase (38-126) U/L Serum Total Protein (6.3-8.2) g/dL Albumin (3.5-5.0) g/dL Amylase (30-110) U/L Lipase (23-300) U/L Urine Color (Yellow) Urine Appearance (Clear) Urine pH (4.6-8.0) Ur Specific [place] (1.005-1.030) Urine Protein (Negative) Urine Glucose (UA) (Negative) mg/dL Urine Ketones (Negative) Urine Blood (Negative) Urine Nitrite (Negative) Urine Bilirubin (Negative) Urine Urobilinogen (0.2) mg/dL Ur Leukocyte Esterase (Negative) U Hyaline Cast (Auto) (0-2) /LPF Urine Microscopic RBC (0-5) /HPF Urine Microscopic WBC (0-5) /HPF Ur Epithelial Cells (None Seen) /HPF Urine Bacteria (None Seen) /HPF Urine Culture Reflexed (NO) Stl Occult Blood (IFOB) (NEGATIVE) C. difficile Screen (NEGATIVE) C.difficile 027-NAP1-B1 (NEGATIVE) Monoscreen (NEGATIVE) Influenza Type A Ag (NEGATIVE) Influenza Type B Ag (NEGATIVE) RSV (PCR) (NEGATIVE) SARS-CoV-2 (PCR) (NEGATIVE) Slides for Path Review 02/21/24 02/21/24 02/21/24 Range/Units 09:45 09:40 09:40 WBC (4.0-10.5) x10^3/uL RBC (4.1-5.4) x10^6/uL Hgb (12.0-16.0) g/dL Hct (35-47) % MCV (78-100) fL MCH (26-32) pg MCHC (32-36) g/dL RDW (11.5-14.0) % Plt Count (150-450) x10^3/uL MPV (7.5-11.0) fL Gran % (36.0-66.0) % Immature Gran % (Auto) (0.00-0.4) % Nucleat RBC Rel Count (0.00-0.1) % Eos # (Auto) (0-0.5) x10^3/uL Immature Gran # (Auto) (0.00-0.03) x10^3u/L Absolute Lymphs (auto) (1.0-4.6) x10^3/uL Absolute Monos (auto) (0.0-1.3) x10^3/uL Absolute Nucleated RBC (0.00-0.01) x10^3u/L Lymphocytes % (24.0-44.0) % Monocytes % (0.0-12.0) % Eosinophils % (0.00-5.0) % Basophils % (0.0-0.4) % Absolute Granulocytes (1.4-6.9) x10^3/uL Basophils # (0-0.4) x10^3/uL Sodium (135-145) mmol/L Potassium (3.5-5.1) mmol/L Chloride (98-107) mmol/L Carbon Dioxide (22-30) mmol/L Anion Gap (5-15) MEQ/L BUN (7-17) mg/dL Creatinine (0.52-1.04) mg/dL Estimated GFR ML/MIN Glucose (74-106) mg/dL Lactic Acid (0.4-2.0) Calcium (8.4-10.2) mg/dL Magnesium 1.5 L (1.6-2.3) mg/dL Total Bilirubin (0.2-1.3) mg/dL AST (14-36) U/L ALT (0-35) U/L Alkaline Phosphatase (38-126) U/L Serum Total Protein (6.3-8.2) g/dL Albumin (3.5-5.0) g/dL Amylase (30-110) U/L Lipase (23-300) U/L Urine Color (Yellow) Urine Appearance (Clear) Urine pH (4.6-8.0) Ur Specific [place] (1.005-1.030) Urine Protein (Negative) Urine Glucose (UA) (Negative) mg/dL Urine Ketones (Negative) Urine Blood (Negative) Urine Nitrite (Negative) Urine Bilirubin (Negative) Urine Urobilinogen (0.2) mg/dL Ur Leukocyte Esterase (Negative) U Hyaline Cast (Auto) (0-2) /LPF Urine Microscopic RBC (0-5) /HPF Urine Microscopic WBC (0-5) /HPF Ur Epithelial Cells (None Seen) /HPF Urine Bacteria (None Seen) /HPF Urine Culture Reflexed (NO) Stl Occult Blood (IFOB) POSITIVE A (NEGATIVE) C. difficile Screen (NEGATIVE) C.difficile 027-NAP1-B1 (NEGATIVE) Monoscreen NEGATIVE (NEGATIVE) Influenza Type A Ag NEGATIVE (NEGATIVE) Influenza Type B Ag NEGATIVE (NEGATIVE) RSV (PCR) NEGATIVE (NEGATIVE) SARS-CoV-2 (PCR) NEGATIVE (NEGATIVE) Slides for Path Review 02/21/24 02/21/24 Range/Units 09:40 09:40 WBC 21.3 H (4.0-10.5) x10^3/uL RBC 5.12 (4.1-5.4) x10^6/uL Hgb 12.5 (12.0-16.0) g/dL Hct 40.3 (35-47) % MCV 78.7 (78-100) fL MCH 24.4 L (26-32) pg MCHC 31.0 L (32-36) g/dL RDW 15.1 H (11.5-14.0) % Plt Count 444 (150-450) x10^3/uL MPV 10.1 (7.5-11.0) fL Gran % 85.3 H (36.0-66.0) % Immature Gran % (Auto) 0.5 H (0.00-0.4) % Nucleat RBC Rel Count 0.0 (0.00-0.1) % Eos # (Auto) 0.05 (0-0.5) x10^3/uL Immature Gran # (Auto) 0.10 H (0.00-0.03) x10^3u/L Absolute Lymphs (auto) 1.36 (1.0-4.6) x10^3/uL Absolute Monos (auto) 1.55 H (0.0-1.3) x10^3/uL Absolute Nucleated RBC 0.00 (0.00-0.01) x10^3u/L Lymphocytes % 6.4 L (24.0-44.0) % Monocytes % 7.3 (0.0-12.0) % Eosinophils % 0.2 (0.00-5.0) % Basophils % 0.3 (0.0-0.4) % Absolute Granulocytes 18.20 H (1.4-6.9) x10^3/uL Basophils # 0.06 (0-0.4) x10^3/uL Sodium 140 (135-145) mmol/L Potassium 2.9 L* (3.5-5.1) mmol/L Chloride 115 H (98-107) mmol/L Carbon Dioxide 14 L* (22-30) mmol/L Anion Gap 14.4 (5-15) MEQ/L BUN 10 (7-17) mg/dL Creatinine 0.42 L (0.52-1.04) mg/dL Estimated GFR 100.7 ML/MIN Glucose 158 H (74-106) mg/dL Lactic Acid (0.4-2.0) Calcium 10.6 H (8.4-10.2) mg/dL Magnesium (1.6-2.3) mg/dL Total Bilirubin 0.60 (0.2-1.3) mg/dL AST 22 (14-36) U/L ALT 21 (0-35) U/L Alkaline Phosphatase 127 H (38-126) U/L Serum Total Protein 7.0 (6.3-8.2) g/dL Albumin 4.0 (3.5-5.0) g/dL Amylase 87 (30-110) U/L Lipase 66 (23-300) U/L Urine Color (Yellow) Urine Appearance (Clear) Urine pH (4.6-8.0) Ur Specific [place] (1.005-1.030) Urine Protein (Negative) Urine Glucose (UA) (Negative) mg/dL Urine Ketones (Negative) Urine Blood (Negative) Urine Nitrite (Negative) Urine Bilirubin (Negative) Urine Urobilinogen (0.2) mg/dL Ur Leukocyte Esterase (Negative) U Hyaline Cast (Auto) (0-2) /LPF Urine Microscopic RBC (0-5) /HPF Urine Microscopic WBC (0-5) /HPF Ur Epithelial Cells (None Seen) /HPF Urine Bacteria (None Seen) /HPF Urine Culture Reflexed (NO) Stl Occult Blood (IFOB) (NEGATIVE) C. difficile Screen (NEGATIVE) C.difficile 027-NAP1-B1 (NEGATIVE) Monoscreen (NEGATIVE) Influenza Type A Ag (NEGATIVE) Influenza Type B Ag (NEGATIVE) RSV (PCR) (NEGATIVE) SARS-CoV-2 (PCR) (NEGATIVE) Slides for Path Review YES - Progress Progress: improved, pain not gone completely, re-examined Progress Note: 02/21/24 09:38 My medical decision making and the assignment of moderate complexity to this patient's medical issue today is based on review of the patient's past medical history, review the patient's medication list, review of patient drug allergy list, history present illness and physical findings on examination. The workup in this patient includes placement of intravenous line, infusion of low rate normal saline solution, CBC, CMP, PT/INR, C. difficile toxins and stool, stool for occult blood, urinalysis and CT scan of the abdomen pelvis without contrast. Differential diagnosis is C. difficile positive toxin, upper GI bleed, lower GI bleed, exogenous source (iron supplement) of black vomitus, viral illness 02/21/24 14:07 I interpreted the patient's laboratory data results. Patient has a white count of 21,000 with a left shift. Her potassium is 2.9 and magnesium is 1.5. We provided her supplementation of both potassium and magnesium. 02/21/24 14:10 It is unclear to me at this point, why this patient has leukocytosis with a left shift. Her urine did show mild dehydration. However there was no urinary tract infection. Her intra-abdominal and pelvic CT did not show anything acute or emergent. Patient is not short of breath and she does not have a cough. Her viral swabs are negative. I have rehydrated her with 2 L of crystalloid solution. I also had supplemented her potassium magnesium levels. My plan at this point is to recheck a CBC, BMP and lactic acid level. If these show impr ovement, I will discharge the patient to home. I will then remotely send a prescription of Levaquin and Flagyl to her pharmacy. I will be providing her the same medication here in the emergency department. CT scan of the abdomen pelvis without contrast was interpreted by the radiologist. The impression states mobile cecum. There is no evidence of any intra-abdominal or intrapelvic free fluid or free air. There is a right pulmonary posterior, basal subpleural groundglass rounded 4.5 mm nodule. The the recommendation is an outpatient CAT scan of the chest. I discussed these findings with the patient and her spouse 02/21/24 14:12 02/21/24 14:55 It was originally reported to me that the patient only had 1 episode of vomiting. However in actuality, the patient had 5 episodes of vomiting just prior to coming in and one of episodes showed black vomitus. This certainly could account for a leukocytosis. 02/21/24 14:56 02/21/24 15:10 I contacted our telehospitalist Dr. Matthews. I reviewed the patient's past medical history, presenting complaint, results of the laboratory and radi ographic studies. We are both in agreement that the patient needs an upper endoscopy. The question is where and when should this upper endoscopy be performed. We both came to agree that because her white count increased despite intervention and her vomiting and hematemesis brought her into the emergency department and we still do not have a source for the elevated and rising white count, that this patient would be best served by transferring her to a facility where there is gastroenterology. Will make arrangements for this transfer. 02/21/24 16:02 We contacted [facility] in [facility] and they do not have GI services available. We then called [facility] in [facility] and they do not have beds available for this level of patient. They are only excepting STEMI's and strokes and trauma. Our facility does not have gastroenterology available. We then called [facility] in [facility]. They do not have bed availability. I am not convinced that this white count is secondary to an infection or an acute emergent medical issue. However, she will be covered for infection. We will infuse another half liter of saline solution and repeat a CBC at 1700. If this level is the same or increasing we will need to transfer this patient either to [place] or [place]. If the blood counts drop sufficiently, I feel the patient can be discharged home with antiemetic, antibiotic medication remotely sent to her pharmacy. 02/21/24 17:25 The 1700 CBC has increased to over 25,000. I reviewed the radiographic studies again as well as her lab results. I did see that I have not ordered a chest x- ray and I will do that at this time. Patient prefers [facility] over [place] at this time. We will place a call into them for possible transfer. 02/21/24 17:27 The C. difficile toxin screen is negative. The screen for blood in her stool is positive. 02/21/24 17:[address] Orozco the hospitalist at [facility] in [facility]. I reviewed the patient history, presenting complaint, results of our workup. She accepts the patient in transfer. Zoraida from the transfer center will be contacting us once a bed is available. Counseled pt/family regarding: lab results, diagnosis, need for follow-up, rad results Medical Desision Making - Independent Historian Additional History obtained from: Spouse - Diagnostic Testing Diagnostic test were ordered, analyzed, and reviewed by me: Yes Radiological Interpretation: Reviewed by me, Teleradiologist Report - Risk of complications The pt has a high risk of morbidity or mortality based on: Decision regarding hospitilization or escalation of hosp level of care - Departure Departure Disposition: Transfer Clinical Impression: Leukocytosis, unspecified, Hypokalemia, Hypomagnesemia, Abdominal pain, Vomiting and diarrhea Condition: Stable Critical Care Time: No Referrals: MANOHAR MULLINS DO [Primary Care Provider] - Follow up/PCP as directed Additional Instructions: Drink plenty of clear liquids before advancing your diet. Take your antibiotics as prescribed. Take your potassium supplementation as prescribed. Call your primary care provider today, 02/21/2024, to make a follow-up appointment to be seen in the next 3 to 5 days.
[2024-02-21 10:09] LABS: ANION GAP 14.4 MEQ/L (5-15); BASOPHIL % 0.3 % (0.0-0.4); BILIRUBIN,TOTAL 0.6 mg/dL (0.2-1.3); Basophil (Absolute #) 0.06 x10^3/uL (0-0.4); Calcium 10.6 mg/dL (8.4-10.2); Creatinine 1 0.42 mg/dL (0.52-1.04); EST GLOMERULAR FILTRATION RATE 100.7 ML/MIN; Eosinophil % 0.2 % (0.00-5.0); Eosinophil (Absolute #) 0.05 x10^3/uL (0-0.5); Hematocrit 40.3 % (35-47); Hemoglobin 12.5 g/dL (12.0-16.0); IMMATURE GRAN % 0.5 % (0.00-0.4); Lymphocyte (Absolute #) 1.36 x10^3/uL (1.0-4.6); Lymphocytes % 6.4 % (24.0-44.0); Mean Cell Volume 78.7 fL (78-100); Mean Corpuscular Hemoglobin 24.4 pg (26-32); Mean Platelet Volume 10.1 fL (7.5-11.0); Monocyte (Absolute #) 1.55 x10^3/uL (0.0-1.3); Monocytes % 7.3 % (0.0-12.0); Neutrophil % 85.3 % (36.0-66.0); Platelet Count 444 x10^3/uL (150-450); Red Blood Count 5.12 x10^6/uL (4.1-5.4); Red Cell Distribution Width 15.1 % (11.5-14.0); White Blood Count 21.3 x10^3/uL (4.0-10.5)
[2024-02-21 10:18] LABS: Potassium 2.9 mmol/L (3.5-5.1)
[2024-02-21 10:30] LABS: INFLUENZA A NEGATIVE (NEGATIVE); INFLUENZA B NEGATIVE (NEGATIVE); RESPIRATORY SYNCTIAL VIRUS NEGATIVE (NEGATIVE); SARS-CoV-2 Xpert Express NEGATIVE (NEGATIVE)
[2024-02-21] MEDS ORDERED: Klor Con ONE (10:38)
[2024-02-21] MEDS ORDERED: POTASSIUM CHLORIDE 20 mEq IN WATER 100ML 100 ML IV ONE ×2 (10:38→21:27)
[2024-02-21] MEDS ORDERED: Sodium Chloride 0.9% 1000 ML 1,000 ML ONE ×2 (10:38→19:54)
[2024-02-21] MEDS: Klor Con PO ONE (10:40)
[2024-02-21] MEDS: Sodium Chloride 0.9% 1000 ML 1,000 ML IV SCH ×2 (10:42→19:57)
[2024-02-21] MEDS: POTASSIUM CHLORIDE 20 mEq IN WATER 100ML 20 MEQ/100 ML BAG IV ONE ×2 (10:44→21:36)
--- NOTE | 2024-02-21 11:10 | XRAY ---
CLINICAL HISTORY: ABD pain; diarrhea and vomiting COMPARISON: None. TECHNIQUE: Contiguous 5.[address] images of the abdomen were performed without IV contrast. Coronal and sagittal reconstructions were also obtained. DLP 200.59 mGy.cm. One of the following dose reduction techniques were utilized for this exam: Automated exposure control, adjustment of the mA and/or kV according to patient size, use of iterative reconstruction FINDINGS: The thoracic-abdominal transition exhibits a medium-sized hiatal sliding hernia and some small unspecified lung nodes, a few of them calcified and residual. The liver is normal in size and shape and has no focal or diffuse parenchymal abnormality. No hepatic mass is identified. Focal calcified residual granuloma is seen in the IVb hepatic segment. The portal vein, intrahepatic biliary radicals, and the bile ducts are normal. The gall bladder is not seen due to the previous cholecystectomy. The pancreas appears unremarkable, with no peripancreatic fat stranding, pancreatic pseudocyst, or peripancreatic fluid collection. Spleen normal in size, with lobulated contours, exhibiting residual intraparenchymal calcified residual granulomas. Presence of a 1.9 cm regular and homogenous node on the left adrenal gland, which exhibits a low attenuation, likely an adrenal adenoma. The right adrenal gland is unremarkable. Both kidneys are normal in size, shape, and orientation. Suggestive images of sinus cysts in the left kidney. No calculi, cyst mass, or hydronephrosis was seen on either side. Both ureters and urinary bladder appear normal. Aortoiliac atheromatosis. Stomach and small bowel loops are unremarkable. The cecum appear distended and reaches the pelvis, mildly indenting the bladder suggesting a mobile cecum. There is also a mild distention of the ileocecal junction by fluid content. The appendix was not individualized. No evidence of significant enlargement of the mesenteric or retroperitoneal lymph nodes. The uterus is not seen due to the previous hysterectomy. Pelvic pheloliths. There is no free fluid in the abdomen. Visualized thoracic and lumbar spines appear with degenerative changes. No lytic or sclerotic bone lesions in visualized bones. Right pulmonary posterior basal subpleural ground glass rounded 4.5 mm nodule noted. IMPRESSION: The cecum appear distended and reaches the pelvis, mildly indenting the bladder suggesting a mobile cecum. Calcifications are seen in the base of the lung, spleen, and liver, probably associated with the previous granulomatous infection. Possible left adrenal adenoma. Right pulmonary posterior basal subpleural ground glass rounded 4.5 mm nodule noted, warranting dedicated CT chest study. Electronically Signed by: Brennan Ellison MD. (02/21/2024 11:06:56 EDT)
[2024-02-21 11:13] LABS: Slide Review 1 YES
[2024-02-21] MEDS ORDERED: MAG-OX 400 ONE (12:01)
[2024-02-21] MEDS: MAG-OX 400 PO ONE (12:03)
[2024-02-21] MEDS ORDERED: Lactated Ringers 1,000 ML IV ONE (13:03)
[2024-02-21] MEDS: Lactated Ringers 1,000 ML IV ONE (13:05)
[2024-02-21 14:03] LABS: Appearance Clear (Clear); Bacteria None Seen /HPF (None Seen); Bilirubin Negative (Negative); Blood Negative (Negative); Epithelial Cells None Seen /HPF (None Seen); Glucose, Urine Negative (Negative); Hyaline Casts NONE SEEN /LPF (0-2); Ketones 40 (Negative); Leukocyte Esterase Negative (Negative); Nitrite Negative (Negative); Ph 5.5 (4.6-8.0); Protein,Urine Dip Trace (Negative); RBC 0-2 /HPF (0-5); Urobilinogen 0.2 mg/dL (0.2); WBC 0-2 /HPF (0-5)
[2024-02-21 14:05] LABS: ADD URINE CULTURE? NO (NO)
[2024-02-21] MEDS ORDERED: Levofloxacin 500 MG Tablet ONE (14:23)
[2024-02-21] MEDS ORDERED: Flagyl 500 MG ONE (14:23)
[2024-02-21 14:27] LABS: Absolute Neutrophil Ct (ANC) 21.38 x10^3/uL (1.4-6.9); BASOPHIL % 0.2 % (0.0-0.4); Basophil (Absolute #) 0.06 x10^3/uL (0-0.4); Eosinophil % 0.4 % (0.00-5.0); Hematocrit 36.4 % (35-47); Hemoglobin 11.2 g/dL (12.0-16.0); IMMATURE GRAN # 0.17 x10^3u/L (0.00-0.03); IMMATURE GRAN % 0.7 % (0.00-0.4); Lymphocyte (Absolute #) 1.29 x10^3/uL (1.0-4.6); Lymphocytes % 5.4 % (24.0-44.0); Mean Cell Volume 79.5 fL (78-100); Mean Corpuscular Hemoglobin 24.5 pg (26-32); Mean Corpuscular Hgb Concent. 30.8 g/dL (32-36); Mean Platelet Volume 9.5 fL (7.5-11.0); Monocyte (Absolute #) 1.04 x10^3/uL (0.0-1.3); Monocytes % 4.3 % (0.0-12.0); Platelet Count 364 x10^3/uL (150-450); Red Blood Count 4.58 x10^6/uL (4.1-5.4); Red Cell Distribution Width 15.1 % (11.5-14.0)
[2024-02-21] MEDS: Levofloxacin 500 MG Tablet PO ONE (14:29)
[2024-02-21] MEDS: Flagyl 500 MG PO ONE (14:29)
[2024-02-21 14:40] LABS: ANION GAP 10.5 MEQ/L (5-15); Calcium 9.2 mg/dL (8.4-10.2); Creatinine 1 0.36 mg/dL (0.52-1.04); EST GLOMERULAR FILTRATION RATE 104.5 ML/MIN; Potassium 3.2 mmol/L (3.5-5.1)
[2024-02-21 15:56] LABS: IFOB TEST RESULTS POSITIVE (NEGATIVE)
[2024-02-21] MEDS ORDERED: Sodium Chloride 0.9% 500 ML 500 ML IV ONE (16:09)
[2024-02-21] MEDS: Sodium Chloride 0.9% 500 ML 500 ML IV ONE (16:12)
[2024-02-21 16:27] LABS: 027 TOX PROD PRESUMPTIVE NEGATIVE (NEGATIVE); TOXIGENIC C. DIFF ORG NEGATIVE (NEGATIVE)
[2024-02-21 17:08] LABS: Hematocrit 35.1 % (35-47); Hemoglobin 11.1 g/dL (12.0-16.0); Mean Cell Volume 79.2 fL (78-100); Mean Corpuscular Hemoglobin 25.1 pg (26-32); Mean Corpuscular Hgb Concent. 31.6 g/dL (32-36); Mean Platelet Volume 9.8 fL (7.5-11.0); Platelet Count 374 x10^3/uL (150-450); Red Blood Count 4.43 x10^6/uL (4.1-5.4); Red Cell Distribution Width 15.2 % (11.5-14.0)
[2024-02-21 17:13] LABS: White Blood Count 25.4 x10^3/uL (4.0-10.5)
[2024-02-21 17:59] LABS: Lymphocytes 10 % (24-44); Monocyte 5 % (0.0-12.0); Neutrophils 85 % (36.0-66.0); Platelet Estimate INCREASED (NORMAL); Total Cells Counted 100
[2024-02-21 18:00] LABS: ANISOCYTOSIS 2+; Hypochromia 1+
[2024-02-21 19:54] LABS: Absolute Neutrophil Ct (ANC) 18.53 x10^3/uL (1.4-6.9); BASOPHIL % 0.2 % (0.0-0.4); Basophil (Absolute #) 0.05 x10^3/uL (0-0.4); Eosinophil (Absolute #) 0.01 x10^3/uL (0-0.5); Hematocrit 33.1 % (35-47); Hemoglobin 10.5 g/dL (12.0-16.0); IMMATURE GRAN # 0.12 x10^3u/L (0.00-0.03); IMMATURE GRAN % 0.5 % (0.00-0.4); Lymphocytes % 10.5 % (24.0-44.0); Mean Cell Volume 78.6 fL (78-100); Mean Corpuscular Hemoglobin 24.9 pg (26-32); Mean Corpuscular Hgb Concent. 31.7 g/dL (32-36); Mean Platelet Volume 9.4 fL (7.5-11.0); Monocyte (Absolute #) 1.77 x10^3/uL (0.0-1.3); Monocytes % 7.7 % (0.0-12.0); Neutrophil % 81.1 % (36.0-66.0); Platelet Count 348 x10^3/uL (150-450); Red Blood Count 4.21 x10^6/uL (4.1-5.4); Red Cell Distribution Width 15.2 % (11.5-14.0); White Blood Count 22.9 x10^3/uL (4.0-10.5)
[2024-02-21 20:07] LABS: Calcium 8.9 mg/dL (8.4-10.2); Creatinine 1 0.35 mg/dL (0.52-1.04); EST GLOMERULAR FILTRATION RATE 105.2 ML/MIN
[2024-02-21 20:16] LABS: Potassium 2.8 mmol/L (3.5-5.1)
[2024-02-22 06:44] VITALS: BP 148/58; PULSE 72; RESP 18; O2SAT 98
--- NOTE | 2024-02-22 07:58 | XRAY ---
Indication: Leukocytosis. Comparison: December 24, 2022 Portable chest again demonstrates incidental tiny calcified granulomas. No focal infiltrate, consolidation, or large effusion. Heart not enlarged. Stable hiatal hernia with partial intrathoracic stomach. Bony thorax intact again with osteopenia and degenerative changes. Impression: Continued nonacute chest with chronic features.
== END 2024-02-22 06:41 | disposition short-term general hospital (02) ==
LOC: ED 09:03
DX: D72.829 Elevated white blood cell count, unspecified (principal); E87.6 Hypokalemia; E83.42 Hypomagnesemia; R10.33 Periumbilical pain; R11.2 Nausea with vomiting, unspecified; R19.7 Diarrhea, unspecified; I10 Essential (primary) hypertension; E11.9 Type 2 diabetes mellitus without complications; E78.5 Hyperlipidemia, unspecified; Z79.85 Long-term (current) use of injectable non-insulin antidiabetic drugs; Z79.899 Other long term (current) drug therapy
CPT/HCPCS: 0241U; 36000; 36415; 71045; 74176; 80048; 80053; 81001; 82150; 83605; 83690; 83735; 85025; 86308; 87493; 93041; 96360; 96361; 99285; G0328; 82274; J3480; A9270-GY

== ENCOUNTER 2024-09-29 05:49 | Day surgery (SDC) | payer MEDICARE, OTHER ==
[2024-09-29] MEDS: Decadron 4 MG PO ONE (06:28)
[2024-09-29] MEDS: celeBREX 100 MG PO ONE (06:28)
[2024-09-29] MEDS: TYLENOL EXTRA STRENGTH 500 MG PO ONE (06:28)
[2024-09-29] MEDS: NEURONTIN PO ONE (06:29)
[2024-09-29] MEDS: Lactated Ringers 1,000 ML IV SCH (06:29)
[2024-09-29 06:39] VITALS: RESP 18
[2024-09-29 06:49] LABS: Absolute Neutrophil Ct (ANC) 10.56 x10^3/uL (1.56-6.13); BASOPHIL % 0.8 % (0.1-1.2); Basophil (Absolute #) 0.12 x10^3/uL (0.01-0.08); Eosinophil % 2.3 % (0.7-5.8); Eosinophil (Absolute #) 0.34 x10^3/uL (0.04-0.36); Hematocrit 40.4 % (34.1-44.9); Hemoglobin 12.6 g/dL (11.2-15.7); IMMATURE GRAN # 0.07 x10^3u/L (0.001-0.031); IMMATURE GRAN % 0.5 % (0.001-0.429); Lymphocyte (Absolute #) 2.03 x10^3/uL (1.18-3.74); Mean Cell Volume 77.1 fL (79.4-94.8); Mean Corpuscular Hgb Concent. 31.2 g/dL (32.2-35.5); Mean Platelet Volume 10.2 fL (9.4-12.3); Monocyte (Absolute #) 1.43 x10^3/uL (0.24-0.86); Monocytes % 9.8 % (4.7-12.5); Neutrophil % 72.6 % (34.0-71.1); Platelet Count 379 x10^3/uL (182-369); Red Blood Count 5.24 x10^6/uL (3.93-5.22); Red Cell Distribution Width 15.3 % (11.7-14.4); White Blood Count 14.6 x10^3/uL (3.98-10.04)
[2024-09-29] MEDS ORDERED: MARCAINE 0.25% PF/ EPI 1:200,000 ONE (07:16)
[2024-09-29 07:20] LABS: ALBUMIN 3.8 g/dL (3.5-5.0); ANION GAP 9.8 MEQ/L (5-15); BILIRUBIN,TOTAL 0.3 mg/dL (0.2-1.3); Calcium 8.6 mg/dL (8.4-10.2); Creatinine 1 0.36 mg/dL (0.52-1.04); EST GLOMERULAR FILTRATION RATE 103.9 ML/MIN; Potassium 3.9 mmol/L (3.5-5.1); Total Protein 6.6 g/dL (6.3-8.2)
[2024-09-29] MEDS: CLINDAMYCIN-D5W 600 MG/50 ML*** 600 MG/50 ML BAG IV SCH (07:36)
[2024-09-29] MEDS ORDERED: Amidate 20 MG/10 ML IV ONE (07:48)
[2024-09-29] MEDS ORDERED: PHENYLEPHRINE HCL ONE (07:48)
[2024-09-29] MEDS ORDERED: ROCURONIUM BROMIDE IV ONE (07:48)
[2024-09-29] MEDS ORDERED: Versed 2 MG/2 ML Injection ONE (07:48)
[2024-09-29] MEDS ORDERED: SUBLIMAZE 100 MCG/2 ML ONE ×2 (07:48→09:10)
[2024-09-29] MEDS ORDERED: DILAUDID 2 MG INJECTION ONE (08:09)
[2024-09-29] MEDS ORDERED: Sensorcaine 0.25% 10 ML ONE ×2 (08:22→09:23)
[2024-09-29] MEDS ORDERED: BRIDION 200MG/2ML IV ONE (09:22)
[2024-09-29] MEDS ORDERED: Zofran 4 MG/2 ML VIAL ONE (09:22)
[2024-09-29] MEDS ORDERED: Lactated Ringers 1,000 ML IV ONE (09:45)
--- NOTE | 2024-09-29 09:50 | XRAY ---
Indication: Distal left radius ORIF surgery. Intraoperative fluoroscopy provided for 2 minutes 11 seconds. 21 digital spot images submitted for interpretation ultimately demonstrates anterior fixation plate and screws fixating distal radius fracture in good apposition/alignment. Correlate with intraoperative findings/report.
[2024-09-29 11:14] VITALS: TEMP 98.2
[2024-09-29 12:15] VITALS: BP 150/77; PULSE 85; O2SAT 97
--- NOTE | 2024-09-29 13:57 | XRAY ---
2 minutes 11 seconds of fluoroscopy used in surgery for a distal left radius ORIF surgery.
--- NOTE | 2024-10-02 10:29 | OP ---
SURGERY DATE/TIME: 09/29/2024 [id number] PREOPERATIVE DIAGNOSIS: Fracture of left distal radius, extra-articular. POSTOPERATIVE DIAGNOSIS: Fracture of left distal radius, extra-articular. PROCEDURE: Open reduction and internal fixation of fracture of left distal radius. SURGEON: Amie Calvin MD INDICATIONS: A 79-year-old female presented to the office for evaluation of left wrist pain after a fall. She had been seen in the emergency room here at [facility]. She was placed in a splint and diagnosed with a fracture of the distal radius. She was evaluated in the clinic 2 days ago. Radiographs were reviewed showing a displaced distal radius fracture. Surgical management was recommended and the procedure, risks, and benefits were discussed. Surgical fixation was recommended due to the displaced nature and the desire for re-establishment of anatomic alignment. Patient was agreeable to proceed with ORIF after discussing the procedure, risks, and benefits. DESCRIPTION OF PROCEDURE AND FINDINGS: Patient was seen preoperatively and the operative limb was identified, confirmed, and initialed. She was taken to the operating room. She was given IV antibiotics. She was placed under general anesthesia in supine position. Splint and dressings were removed. Tourniquet was applied to the left upper arm. Sterile prep and drape of the left upper extremity were carried out. We exsanguinated the limb with an Esmarch and inflated tourniquet to 250 mmHg. Arm was kept abducted to the side on an armboard. We made a longitudinal incision on the volar radial wrist. This was deepened to identify the shaft of the FCR tendon. The sheath was incised, the tendon retracted, and the floor of the sheath was then incised. Blunt dissection was used to identify the pronator muscle which was released from the radial side of the distal radius. Retraction of the muscle revealed the fracture. Clamp was placed on the radial shaft to facilitate rotation and retraction. Reduction of the fracture was carried out through manipulative means and maintained temporarily with a K-wire through the radial styloid. Once this was done, we used a [employer] CrossFix radial plating system and selected a narrow 3-hole plate and positioned it on the volar surface of the radius. We placed our initial screw through the elongated shaft hole and secured it. We then drilled through one of the middle distal holes, checked its position with the C-arm, and AP and lateral imaging with the C-arm determined that the path of the drill was proximal to the joint. We proceeded then to drill and insert screws. Carefully examining the fracture at that point left us to suspect that the plate was too far distal raising the possibility of joint involvement. So, we removed the screws, moved the plate, and reinserted fixation, all with good purchase. We took final x-ray images. The tourniquet was released. Bleeding was controlled. We irrigated the wound copiously. We injected a total of 20 mL of 0.25% Marcaine without epinephrine into the area surrounding the incision and proximal to the incision. The wound was then closed with interrupted Prolene suture. Sterile volar dressing and splint were applied. She was then taken to the recovery room in stable condition.
== END 2024-09-29 12:15 | disposition home or self-care (01) ==
LOC: SDC 05:49
PROVIDERS: ATTEND Orthopaedic Surgery
DX: S52.532A Colles' fracture of left radius, initial encounter for closed fracture (principal); M25.532 Pain in left wrist; I10 Essential (primary) hypertension
CPT/HCPCS: 01740; 24665; 36415; 73110; 76000; 80053; 85025; 85730; 93005; 99100; C1713; C1769; J1171; J2250; J2371; J2405; J3010; A9270-GY

== ENCOUNTER 2025-09-14 05:56 | Day surgery (SDC) | payer MEDICARE, OTHER ==
[2025-09-14] MEDS ORDERED: CEFAZOLIN SODIUM ONE (06:07)
[2025-09-14] MEDS: Lactated Ringers 1,000 ML IV SCH (06:18)
[2025-09-14] MEDS ORDERED: XYLOCAINE 1% HCL 20 ML MDV ONE ×2 (06:27→07:52)
[2025-09-14] MEDS ORDERED: Versed 2 MG/2 ML Injection ONE (08:07)
[2025-09-14] MEDS ORDERED: propofoL IV ONE (08:08)
[2025-09-14] MEDS ORDERED: Zofran 4 MG/2 ML VIAL ONE (08:09)
[2025-09-14] MEDS ORDERED: Xylocaine-Mpf 2% 5 Ml Vial ONE ×2 (08:09→10:26)
[2025-09-14] MEDS ORDERED: Marcaine Mpf 0.5% Vial 30 Ml ONE (08:10)
[2025-09-14] MEDS ORDERED: EXPAREL 133 MG/10 ML VIAL IJ ONE ×2 (08:10→10:25)
[2025-09-14] MEDS ORDERED: SUBLIMAZE 100 MCG/2 ML ONE (08:15)
[2025-09-14] MEDS ORDERED: DILAUDID 0.5 MG/0.5 ML SYRINGE ONE (10:07)
[2025-09-14] MEDS ORDERED: TORAdol 30 mg Injection ONE (10:13)
--- NOTE | 2025-09-14 10:17 | XRAY ---
Indication: Right olecranon process ORIF surgery. Intraoperative fluoroscopy provided for 39 seconds. 16 digital spot images submitted for interpretation demonstrates single orthopedic screw fixating olecranon process fracture in good apposition/alignment. Correlate with intraoperative findings/report.
[2025-09-14] MEDS ORDERED: APRESOLINE 20 MG/ML INJ ONE (10:43)
[2025-09-14 11:57] VITALS: BP 173/91; PULSE 77; RESP 16; O2SAT 95
[2025-09-14 12:23] VITALS: TEMP 97.8
--- NOTE | 2025-09-14 15:19 | XRAY ---
39 seconds of fluoroscopy used in surgery for a right olecranon process ORIF.
--- NOTE | 2025-09-14 16:35 | OP ---
SURGERY DATE/TIME: 09/14/2025 [id number] PREOPERATIVE DIAGNOSIS: Right olecranon fracture. POSTOPERATIVE DIAGNOSIS: Right olecranon fracture. PROCEDURE: Open reduction and internal fixation of right olecranon fracture. SURGEON: Leonard Lam MD [facility] CODER: None. ANESTHESIA: General. ESTIMATED BLOOD LOSS: 10 mL. COMPLICATIONS: None. INDICATIONS: The patient is a 80-year-old female who fell on 09/02/2025 onto her right elbow. Her x-rays revealed a transverse displaced olecranon fracture. We discussed options, and I recommended open reduction and internal fixation. I explained risks associated with the procedure, including but not limited to infection, pain, bleeding, damage to surrounding structures, stiffness, nonunion, malunion, hardware complications, and need for other procedures. After explaining all risks, benefits, and alternative treatment options, she desired to proceed with surgery. DESCRIPTION OF PROCEDURE AND FINDINGS: The patient was taken to the operating room and placed in the supine position. IV antibiotics were administered, and general anesthesia was administered as well. A tourniquet was applied to the right upper arm. The right upper extremity was then prepped and draped in standard sterile fashion. An Esmarch was used to exsanguinate the limb, and the tourniquet was inflated to 250 mmHg. At this time, a slightly curved incision was made posteriorly over the olecranon and partway down the proximal ulna. Dissection was carried down and the fracture site was identified and debrided. Reduction clamps were then used to assist with a nice reduction of the fracture. With the fracture held clamped, a K-wire was advanced from the tip of the olecranon, partway down the ulnar shaft. The position of the pin was confirmed to be adequate using the C-arm. The triceps had been split with a knife longitudinally to gain access to the bone. After determining the appropriate length of screw, a 115 mm Regina Biomet 6.5 mm partially threaded cannulated cancellous screw with a washer was advanced down the olecranon. Excellent compression was obtained across the fracture. The C-arm was used to confirm nice hardware position and fracture alignment. The elbow was placed through a range of motion and there was noted to be excellent stability of the fracture site. The wound was thoroughly irrigated with normal saline. The triceps split was approximated with 2-0 Vicryl sutures. The subcutaneous tissue for the incision was closed with 2-0 Vicryl sutures and the skin was closed with 3-0 nylon sutures. Tourniquet had been released. A sterile dressing was then applied as well as an arm sling. The patient was then awakened from anesthesia and taken to the recovery room in stable condition.
== END 2025-09-14 12:20 | disposition home or self-care (01) ==
LOC: SDC 05:56
PROVIDERS: ATTEND Orthopaedic Surgery
DX: S52.021K Displaced fracture of olecranon process without intraarticular extension of right ulna, subsequent encounter for closed fracture with nonunion (principal); M25.521 Pain in right elbow